=== PATIENT | male | born 1980 | race Caucasian/White ===

== ENCOUNTER 2024-10-30 13:05 | Emergency (ER) | payer BC, MEDICAID ==
[~2024-10-30] VITALS: Ht 165.1 cm; Wt 72.7 kg
[2024-10-30 13:12] VITALS: TEMP 98.2
[2024-10-30 13:35] LABS: PLATELET COUNT (AUTO) 270 K/uL (150-450); RED BLOOD CELL COUNT(AUTO) 4.74 MIL/uL (4.50-5.90); RED CELL DISTRIBUTION WIDTH 12.1 % (11.5-14.5); WHITE BLOOD COUNT (AUTO) 6.1 K/uL (4.5-11.0)
[2024-10-30 13:42] LABS: CALCIUM, TOTAL 8.0 mg/dL (8.8-10.5); CREATININE 0.96 mg/dL (0.60-1.30); GLOMERULAR FILTR. RATE CALC > 60 mL/min (>60); GLUCOSE,RANDOM 119 mg/dL (70-110); SODIUM SERUM 137 mmol/L (136-145); UREA NITROGEN, BLOOD 17 mg/dL (7-18)
[2024-10-30 13:46] LABS: ASPARTATE AMINOTRANSFERASE 24.0 U/L (15-37); TOTAL PROTEIN, SERUM 7.2 g/dL (6.4-8.2)
[2024-10-30 14:03] LABS: APPEARANCE,URINE CLEAR (CLEAR); GLUCOSE, URINE (UA) NEGATIVE (NEGATIVE); LEUKOCYTE ESTERASE ,URINE NEGATIVE (NEGATIVE); NITRATE,URINE NEGATIVE (NEGATIVE); OCCULT BLOOD,URINE NEGATIVE (NEGATIVE); SPECIFIC GRAVITIY, URINE 1.022 (1.003-1.030)
[2024-10-30] MEDS: KETOROLAC TROMETHAMINE 30 MG/ML VIAL IVP ONE (14:40)
[2024-10-30 15:45] VITALS: BP 117/68; PULSE 71; RESP 16; O2SAT 97
== END 2024-10-30 15:58 | disposition home or self-care (01) ==
LOC: EMS 13:05
DX: R10.32 Left lower quadrant pain (principal); K08.89 Other specified disorders of teeth and supporting structures
CPT/HCPCS: 99283; 96374; 80048; 80076; 81003; 83690; 85025; 36415; J1885